=== PATIENT | male | born 1950 | race Caucasian/White ===

== ENCOUNTER 2016-10-29 09:48 | Emergency (ER) | payer OTHER ==
[2016-10-29] MEDS ORDERED: HYDROmorphone 1 MG/ML 1 ML SYRINGE IM STA (10:25)
--- NOTE | 2016-10-29 10:33 | ED ---
Fall HPI - General Chief Complaint: Fall Stated Complaint: Fall - 8 ft ladder Time Seen by Provider: 10/29/16 10:16 Source: patient, RN notes reviewed Mode of arrival: wheelchair - History of Present Illness Initial Comments: 65-year-old male presents to the emergency Department chief complaint of fall. Patient was about 8 feet up on a ladder he reached out and He fell. Patient states that he is now landed onto his right side. Patient states he blacked out when he hit his head. Patient is complaining of right shoulder and hip pain. Patient states that he does not have a headache he denies any neck pain. Patient states he has any pain to movement shoulder and points to the clavicle where his pain is located. Patient was able ambulate but he does have some tenderness on the lateral aspect of the right hip. Patient states he is concerned due to his continued symptoms so he thought that he should be evaluated. Patient denies any recent fever, chills, shortness of breath, chest pain, back pain, abdominal pain, nausea vomiting, numbness or tingling, dysuria or hematuria, constipation or diarrhea, headaches or visual changes, or any other current symptoms. - Related Data Home Medications Medication Instructions Recorded Confirmed Aspirin 81 mg PO DAILY 10/29/16 10/29/16 Doxycycline Hyclate [Vibramycin] 100 mg PO BID 10/29/16 10/29/16 Metoclopramide [Reglan] 10 mg PO DAILY PRN 10/29/16 10/29/16 Omeprazole [PriLOSEC] 20 mg PO DAILY 10/29/16 10/29/16 methylPREDNISolone [Medrol Dose See Taper PO DIRECTED 10/29/16 10/29/16 Pack] Previous Rx's Medication Instructions Recorded Hydrocodone/Acetaminophen [[place] 1 each PO Q6HR PRN #20 tab 10/29/16 5-325] Allergies Allergy/AdvReac Type Severity Reaction Status Date / Time No Known Allergies Allergy Unverified 10/29/16 10:29 Review of Systems ROS Statement: Those systems with pertinent positive or pertinent negative responses have been documented in the HPI. ROS Other: All systems not noted in ROS Statement are negative. Past Medical History Past Medical History: No Reported History History of Any Multi-Drug Resistant Organisms: None Reported Past Surgical History: Cholecystectomy Additional Past Surgical History / Comment(s): right/left rotator cuff surgery Past Psychological History: No Psychological Hx Reported Smoking Status: Never smoker Past Alcohol Use History: Occasional Past Drug Use History: None Reported General Exam - General Exam Comments Initial Comments: General: The patient is awake and alert, in no distress, and does not appear acutely ill. Neck: The neck is supple, there is no tenderness. Cardiovascular: There is a regular rate and rhythm. No murmur, rub or gallop is appreciated. Respiratory: Lungs are clear to auscultation, respirations are non-labored, breath sounds are equal. No wheezes, stridor, rales, or rhonchi. Musculoskeletal: The patient has pain to the anterior clavicle. No tenderness with palpation of the shoulder however he does have pain with range of motion at 7 levels. Patient has tenderness along the right lateral hip with full range motion is able to bear weight. Full range motion of right elbow and wrist. Patient's range of motion of knee. Neurological: CN II-XII intact, There are no obvious motor or sensory deficits. Coordination appears grossly intact. Speech is normal. Skin: Skin is warm and dry and no rashes or lesions are noted. Psychiatric: Normal mood and affect. Limitations: no limitations Course Vital Signs 10/29/16 10:03 Temperature 97.6 F Pulse Rate 84 Respiratory 20 Rate Blood Pressure 137/87 O2 Sat by Pulse 97 Oximetry Procedures - Orthopedic Splinting/Casting Injury #1 Side: right Upper Extremity Injury Location: clavicle Upper Extremity Immobilizer: sling/shoulder immobilizer Medical Decision Making - Medical Decision Making 65-year-old male presents to the emergency Department chief complaint of fall. At this time the patient does appear to have a right clavicle fracture. Patient is a sling and given follow-up to orthopedics. We did discuss close follow-up is discussed return parameters and care. We discussed all the patient 's questions. He stated understanding and agreement with plan. He will be discharged home. - Radiology Data Radiology results: report reviewed, image reviewed Disposition Clinical Impression: Fall, Minor head injury with loss of consciousness, Contusion of right hip, Right clavicle fracture Disposition: HOME SELF-CARE Condition: Stable Instructions: Head Injury (ED), Clavicle Fracture (ED) Additional Instructions: Please use medication as discussed. Please follow up with family doctor if symptoms have not improved over the next two days. Please return to the emergency room if your symptoms increase or worsen or for any other concerns. Prescriptions: Hydrocodone/Acetaminophen [[place] 5-325] 1 each PO Q6HR PRN #20 tab PRN Reason: Pain Referrals: Fredy Huang MD [Primary Care Provider] - 1-2 days Garret Johnson DO [Doctor of Osteopathic Medicine] - 1-2 days Time of Disposition: 11:09
--- NOTE | 2016-10-29 10:56 | XR ---
EXAMINATION TYPE: XR Hip RT and AP Pelvis DATE OF EXAM: 10/29/2016 10:48 AM COMPARISON: NONE HISTORY: pain TECHNIQUE: A single AP view of the pelvis is obtained. Two views of the right hip are obtained. FINDINGS: There is no acute fracture/dislocation evident in the pelvis. The hip and sacroiliac join ts appear symmetric and unremarkable. The overlying soft tissue appears unremarkable. Two views of right hip show no acute fracture or dislocation. No focal lytic or sclerotic lesion see n in the proximal right femur. The overlying soft tissue is unremarkable. IMPRESSION: There is no acute fracture or dislocation in the pelvis or right hip.
--- NOTE | 2016-10-29 10:57 | XR ---
EXAMINATION TYPE: XR clavicle RT DATE OF EXAM: 10/29/2016 10:48 AM COMPARISON: NONE HISTORY: Pain TECHNIQUE: 2 views of the right clavicle FINDINGS: There is a fracture involving the mid shaft of the right clavicle with displacement and a d egree of comminution. Severe arthropathy AC joint. IMPRESSION: 1. Displaced fracture mid right clavicle.
--- NOTE | 2016-10-29 11:04 | CT ---
EXAMINATION TYPE: CT brain channing wo con DATE OF EXAM: 10/29/2016 10:47 AM COMPARISON: NONE HISTORY: 65-year-old male fell off ladder about 8ft and landed on right side CT DLP: Brain 1126.5 and Cervical 584.9 mGycm Automated exposure control for dose reduction was used. Technique: Examination of the head was done in axial plane without intravenous contrast. Coronal and sagittal reconstructions performed. CT of the cervical spine was obtained in axial plane without intravenous injection of contrast mater ial. Coronal and sagittal reformatted images were obtained from the axial views for evaluation of f ractures, spinal alignment and canal. FINDINGS: Head: There is no evidence of acute intracranial hemorrhage, acute ischemic changes, mass, mass-effect, or extra-axial fluid collection. There is no effacement of cerebral sulci or basal subarachnoid cister ns. There is no hydrocephalus. There is no midline shift. Mercado-white matter distinction is preserv ed. Mild patchy periventricular white matter hypodensities suggestive of chronic small vessel ischemic di sease. There is mild generalized supratentorial volume loss. Slight leftward nasal septal deviation. Paranasal sinuses and mastoid air cells well pneumatized. Orb its and globes intact. No calvarial fracture. Cervical spine: Partially visualized, mildly comminuted right clavicular shaft fracture with adjacent mild periosteal /soft tissue hematoma. No craniocervical junction abnormality, predental space widening, or prevertebral soft tissue swellin g. Normal alignment of the cervical spine. No acute fracture. Mild disc/endplate degenerative change especially from C4 through C7 levels. There is facet arthropat hy, greatest on the left side. No anahi canal compromise. Degenerative changes may narrow the spinal canal mildly such as at C3-C4. There also appears to be variable moderate left-sided neuroforaminal n arrowing such as that C3-C4, C4-C5, and C5-C6. Sagittal and coronal reformatted images confirm above findings. COMBINED IMPRESSION: 1. No acute intracranial abnormality seen. Mild generalized atrophy. 2. No acute fracture or malalignment of the cervical spine. Mild spondylotic change as mentioned abov e and 3. Partially visualized right clavicular shaft fracture..
[2016-10-29 11:17] VITALS: BP 127/80; PULSE 69; RESP 16; TEMP 97.8
== END 2016-10-29 11:22 | disposition home or self-care (01) ==
LOC: EC 09:48
DX: S42.021A Displaced fracture of shaft of right clavicle, initial encounter for closed fracture (principal); S70.01XA Contusion of right hip, initial encounter; S06.9X9A Unspecified intracranial injury with loss of consciousness of unspecified duration, initial encounter; Z79.82 Long term (current) use of aspirin; Z79.899 Other long term (current) drug therapy; Z79.52 Long term (current) use of systemic steroids; W11.XXXA Fall on and from ladder, initial encounter; W22.09XA Striking against other stationary object, initial encounter
CPT/HCPCS: 73502; 73000; 72125; 70450; 99284; 96372; J1170

== ENCOUNTER 2017-01-30 11:30 | Day surgery (SDC) | payer MEDICARE ==
[2017-01-28 11:30] VITALS: BMI 32.2
[~2017-01-30 11:30] MED LIST: LIDOCAINE 1% 20 ML VIAL (10MG/ML) FOR IV START INTRADERMA PRN
[2017-01-30 12:11] VITALS: RESP 16; TEMP 98.1
[2017-01-30] MEDS: LACTATED RINGERS 1,000 ML IV SCH ×2 (12:23→13:29)
[2017-01-30 12:25] LABS: Glucose,Whole Blood 106 mg/dL (75-99)
[2017-01-30] MEDS ORDERED: PROPOFOL 10 MG/ML 20 ML VIAL IV ONE (13:31)
--- NOTE | 2017-01-30 14:00 | P.PCN ---
Date of Procedure: 01/30/17 Preoperative Diagnosis: Postoperative Diagnosis: Procedure(s) Performed: Procedure: Total colonoscopy. Preoperative diagnosis: Screening for neoplasia, patient has history of polyps. Postoperative diagnosis: Minimal sigmoid diverticulosis with no evidence of acute diverticulitis, strictures, polyps or cancer. Preparation: HalfLytely prep. Sedation: Was provided by anesthesia. Brief clinical history: The patient is a 66-year-old male who is scheduled for this evaluation for screening for neoplasia because of history of polyps. His last exam was in April 2011. At this time, he has no abdominal complaints, bleeding or anemia. Procedure: With the patient on his left lateral decubitus position and after informed consent and adequate sedation, the perianal area was inspected and it did not show any fissures or fistulas. There were no masses felt on digital rectal examination. The Olympus CFQ 160L videocolonoscope was then used and was inserted in the rectum in the usual fashion and advanced to the cecum. There was minimal diverticulosis in the distal sigmoid with no evidence of acute diverticulitis or strictures. No polyps or tumors were seen. The mucosa appeared healthy. I retroflexed the endoscope in the rectum before the endoscope was withdrawn. The patient tolerated the procedure well. Plan: The patient was reassured. Discussed dietary measures. He will follow up with you as planned and I recommended repeat exam in 5 years. Implants: Indications for Procedure: Operative Findings: Description of Procedure:
[2017-01-30 14:14] VITALS: BP 111/73; PULSE 56
== END 2017-01-30 15:18 | disposition home or self-care (01) ==
LOC: ORWHC2ENDO 11:30
DX: Z12.11 Encounter for screening for malignant neoplasm of colon (principal); K57.30 Diverticulosis of large intestine without perforation or abscess without bleeding; Z86.010 Personal history of colon polyps; K21.9 Gastro-esophageal reflux disease without esophagitis; J45.909 Unspecified asthma, uncomplicated; Z79.84 Long term (current) use of oral hypoglycemic drugs; Z79.82 Long term (current) use of aspirin; Z79.899 Other long term (current) drug therapy
CPT/HCPCS: J2704; G0105

== ENCOUNTER → 2017-06-23 | Outpatient (CLI) | payer MEDICARE ==
--- NOTE | 2017-06-23 08:49 | CT ---
EXAMINATION TYPE: CT abdomen pelvis w con DATE OF EXAM: 06/23/2017 COMPARISON: 05/29/2015 HISTORY: Rt sided pain CT DLP: 1364.7 mGycm CONTRAST: CT scan of the abdomen and pelvis is performed with Oral Contrast and with IV Contrast, patient injec smitha with 100 mL of Omnipaque 300. FINDINGS: LUNG BASES-: No visible nodule. No infiltrate. LIVER/GB: No space occupying hepatic lesion. Biliary tree is of normal caliber. Fatty hepatic infiltr ation noted. Cholecystectomy clips identified. PANCREAS: No inflammation. No distinct mass. SPLEEN: No splenic enlargement. No lesion seen. ADRENALS: No nodule. No thickening. KIDNEYS/BLADDER: No hydronephrosis. No nephrolithiasis. Simple cyst upper pole right kidney measur es 2.4 cm. Urinary bladder grossly unremarkable. BOWEL: Normal appendix. Small sliding hiatal hernia. Normal bowel caliber. No inflammation. GENITAL ORGANS: No gross abnormality. LYMPH NODES: No greater than 1cm abdominal or pelvic lymph nodes are appreciated. AORTA: No significant abnormality. OSSEOUS STRUCTURES: Degenerative changes lumbar spine.. OTHER: No significant additional abnormality is seen. IMPRESSION: 1. Hepatic steatosis. 2. Small sliding-type hiatal hernia. 3. Simple cyst upper pole right kidney.
== END | disposition home or self-care (01) ==
LOC: RADCTMAIN 06:42
PROVIDERS: ATTEND Family Medicine
DX: K44.9 Diaphragmatic hernia without obstruction or gangrene (principal); K76.0 Fatty (change of) liver, not elsewhere classified; N28.1 Cyst of kidney, acquired
CPT/HCPCS: 74177; Q9967

== ENCOUNTER → 2020-04-12 | Outpatient (CLI) | payer MEDICARE ==
[2020-04-12 20:03] LABS: Codfish IgE <0.10 kU/L
[2020-04-12 20:04] LABS: Clam IgE <0.10 kU/L; Peanut IgE <0.10 kU/L; Scallop IgE <0.10 kU/L; Shrimp IgE 0.17 kU/L; Soybean IgE <0.10 kU/L; Walnut IgE (Food) <0.10 kU/L
[2020-04-12 20:05] LABS: Cat Epith & Dander IgE <0.10 kU/L; Dermato. farinae IgE 4.49 kU/L
[2020-04-12 20:07] LABS: Ragweed,Common IgE 0.19 kU/L
[2020-04-12 20:08] LABS: Cockroach IgE <0.10 kU/L; Red Top (Bentgrass) IgE <0.10 kU/L
[2020-04-12 20:10] LABS: Alternaria alternata IgE <0.10 kU/L; Aspergillus fumagatus IgE <0.10 kU/L; Birch IgE <0.10 kU/L; Cladosporian herbarum IgE <0.10 kU/L; Maple (Box Elder) IgE <0.10 kU/L
[2020-04-12 20:11] LABS: Elm IgE <0.10 kU/L; Oak IgE <0.10 kU/L
[2020-04-12 20:12] LABS: Dog Dander IgE <0.10 kU/L
== END | disposition home or self-care (01) ==
LOC: LABWHC1 10:03
PROVIDERS: ATTEND Internal Medicine Critical Care Medicine
DX: J45.40 Moderate persistent asthma, uncomplicated (principal)
CPT/HCPCS: 36415; 82785; 85008; 86003

== ENCOUNTER → 2022-10-18 | Outpatient (CLI) | payer MEDICARE ==
--- NOTE | 2022-10-18 13:20 | US ---
EXAMINATION TYPE: US carotid duplex BILAT DATE OF EXAM: 10/18/2022 COMPARISON: NONE CLINICAL INDICATION: Male, 71 years old with history of E78.5 HYPERLIPIDEMIA, UNSPECIFIED; Dizziness TECHNIQUE: Carotid duplex ultrasound examination. Indirect Doppler criteria was utilized. FINDINGS: EXAM MEASUREMENTS: RIGHT: Peak Systolic Velocity (PSV) cm/sec ----- Right CCA: 67.7 ----- Right ICA: 66.0 ----- Right ECA: 45.6 ICA/CCA ratio: 1.0 RIGHT: End Diastole cm/sec ----- Right CCA: 18.8 ----- Right ICA: 24.6 ----- Right ECA: 9.3 LEFT: Peak Systolic Velocity (PSV) cm/sec ----- Left CCA: 72.1 ----- Left ICA: 58.8 ----- Left ECA: 57.0 ICA/CCA ratio: 0.8 LEFT: End Diastole cm/sec ----- Left CCA: 25.0 ----- Left ICA: 24.2 ----- Left ECA: 12.8 VERTEBRALS (direction of flow): Right Vertebral: Antegrade Left Vertebral: Antegrade Rhythm: Normal No significant stenosis IMPRESSION: No ultrasound evidence for hemodynamically significant stenosis of the bilateral internal carotid art eries. Criteria for Assigning % of Stenosis / Diameter reduction (Estimation based on the indirect measurements of the internal carotid artery velocities (ICA PSV). 1. Normal (no stenosis)=ICA PSV < 125 cm/s: ratio < 2.0: ICA EDV<40 cm/s. 2. Less than 50% stenosis=ICA PSV < 125 cm/s: ratio < 2.0: ICA EDV<40 cm/s. 3. 50 to 69% stenosis=ICA PSV of 125 to 230 cm/s: ration 2.0 ? 4.0: ICA EDV 40-100 cm/s. 4. Greater than 70% stenosis to near occlusion= ICA PSV > 230 cm/s: ratio > 4.0: ICA EDV > 100 cm/s. 5. Near occlusion= ICA PSV velocities may be low or undetectable: variable ratio and ICA EDV. 6. Total occlusion=unable to detect flow.
== END | disposition home or self-care (01) ==
LOC: RADUSWWP 12:34
PROVIDERS: ATTEND Family Medicine
DX: E78.5 Hyperlipidemia, unspecified (principal); R42 Dizziness and giddiness
CPT/HCPCS: 93880

== ENCOUNTER → 2022-11-12 | Outpatient (CLI) | payer MEDICARE ==
--- NOTE | 2022-11-13 09:53 | CA ---
Transthoracic Echo Report Name: Glen Larios Age: 71 Gender: M : 1950 Exam Date: 11/12/2022 14:23 Exam Location: [facility] Ht (in): 68 Wt (lb): 200 Ordering Physician: Nitin Ibrahim MD Attending/Referring Phys: Christy Warren [facility] [employer] Karli Coulter RDCS Procedure CPT: Indications: i10 Cardiac Hx: Technical Quality: Good Contrast 1: Total Dose (mL): Contrast 2: Total Dose (mL): MEASUREMENTS (Male / Female) Normal Values 2D ECHO LV Diastolic Diameter PLAX 4.3 cm 4.2 - 5.9 / 3.9 - 5.3 cm LV Systolic Diameter PLAX 2.9 cm IVS Diastolic Thickness 1.2 cm 0.6 - 1.0 / 0.6 - 0.9 cm LVPW Diastolic Thickness 1.1 cm 0.6 - 1.0 / 0.6 - 0.9 cm LV Relative Wall Thickness 0.5 RV Internal Dim ED PLAX 3.1 cm LA Systolic Diameter LX 3.2 cm 3.0 - 4.0 / 2.7 - 3.8 cm LV Diastolic Volume MOD 4C 53.4 cm??? LV Systolic Volume MOD 4C 25.3 cm??? LV Ejection Fraction MOD 4C 52.6 % LV Cardiac Index MOD 4C 931.2 cm???/min???m??? LV Diastolic Length 4C 7.5 cm LV Systolic Length 4C 6.7 cm LV Diastolic Volume MOD 2C 72.2 cm??? LV Systolic Volume MOD 2C 40.3 cm??? LV Ejection Fraction MOD 2C 44.2 % LV Cardiac Index MOD 2C 1057.9 cm???/min???m??? LV Diastolic Length 2C 8.2 cm LV Systolic Length 2C 7.1 cm M-MODE Aortic Root Diameter MM 3.5 cm LA Systolic Diameter MM 3.7 cm LA Ao Ratio MM 1.0 DOPPLER AV Peak Velocity 136.8 cm/s AV Peak Gradient 7.5 mmHg Mitral E Point Velocity 69.7 cm/s Mitral A Point Velocity 76.7 cm/s Mitral E to A Ratio 0.9 MV Deceleration Time 210.9 ms MV E' Velocity 6.2 cm/s Mitral E to MV E' Ratio 11.2 TR Peak Velocity 228.2 cm/s TR Peak Gradient 20.8 mmHg Right Ventricular Systolic Press 30.8 mmHg FINDINGS Left Ventricle Left ventricular ejection fraction is estimated at 55-60 %. Left ventricular cavity size normal. Mildly increased septal wall thickness. Right Ventricle Normal right ventricular size and function. Right ventricular systolic pressure within normal limits. Right Atrium Normal right atrial size. Left Atrium Normal left atrial size. Mitral Valve Structurally normal mitral valve. Mild mitral regurgitation. Aortic Valve Trileaflet aortic valve. No aortic valve stenosis or regurgitation. Tricuspid Valve Structurally normal tricuspid valve. Mild tricuspid regurgitation. Pulmonic Valve Structurally normal pulmonic valve. Mild pulmonic regurgitation. Pericardium Normal pericardium. No pericardial effusion. Aorta Normal size aortic root and proximal ascending aorta. CONCLUSIONS Normal biventricular dimension and systolic function Mild mitral regurgitation Mild tricuspid regurgitation Previewed by: Dr. Kb Ramires MD (Electronically Signed) Final Date: 13 November 2022 09:52
== END | disposition home or self-care (01) ==
LOC: RADECHMAIN 14:17
PROVIDERS: ATTEND Family Medicine
DX: I08.1 Rheumatic disorders of both mitral and tricuspid valves (principal)
CPT/HCPCS: 93306

== ENCOUNTER 2023-07-04 09:13 | Emergency (ER) | payer MEDICARE ==
[2023-07-04] MEDS: SODIUM CHLORIDE 0.9% 1,000 ML IV ONE (09:56)
[2023-07-04] MEDS: SODIUM CHLORIDE 0.9% 500 ML 500 ML IV ONE (09:56)
[2023-07-04 10:07] LABS: HCT 39.5 % (39.0-53.0); HGB 13.8 gm/dL (13.0-17.5); MCH 32.6 pg (25.0-35.0); MCHC 34.9 g/dL (31.0-37.0); MCV 93.2 fL (80.0-100.0); Mean Platelet Volume 8.7; Platelet Count 183 k/uL (150-450); RBC 4.24 m/uL (4.30-5.90); RDW 12.5 % (11.5-15.5); WBC 28.3 k/uL (3.8-10.6)
--- NOTE | 2023-07-04 10:16 | XR ---
EXAMINATION TYPE: XR chest 2V DATE OF EXAM: 07/04/2023 10:06 AM CLINICAL INDICATION:Male, 72 years old with history of sob; [facility] COMPARISON: None TECHNIQUE: XR chest 2V Frontal and lateral views of the chest. FINDINGS: Lungs/Pleura: Airspace opacities in left lower lobe. There is no evidence of pleural effusion, focal consolidation, or pneumothorax. Pulmonary vascularity: Unremarkable. Heart/mediastinum: Cardiomediastinal silhouette is unremarkable. Musculoskeletal: No acute osseous pathology. Other findings: None Lines/Tubes: IMPRESSION: Left lower lobe airspace opacities compatible with pneumonia.
[2023-07-04 10:20] LABS: ALT 41 U/L (4-49); AST 34 U/L (17-59); African American GFR (CKD) >90 (>60 ml/min/1.73 sqM); Albumin 3.9 g/dL (3.5-5.0); Alkaline Phosphatase 89 U/L (38-126); Anion Gap 11 mmol/L; Blood Urea Nitrogen 14 mg/dL (9-20); Calcium 8.8 mg/dL (8.4-10.2); Carbon Dioxide 19 mmol/L (22-30); Chloride 111 mmol/L (98-107); Glucose 181 mg/dL (74-99); Lipase 37 U/L (23-300); Non-African American GFR(CKD) >90 (>60 ml/min/1.73 sqM); Sodium 141 mmol/L (137-145); Total Bilirubin 0.9 mg/dL (0.2-1.3); Total Protein 6.8 g/dL (6.3-8.2)
[2023-07-04 10:21] LABS: Potassium 4.1 mmol/L (3.5-5.1)
[2023-07-04 10:31] LABS: Band Neutrophils % 3 %; Metamyelocytes # (M) 1.13 k/uL (0); Metamyelocytes % 4 %; Monocytes # (M) 1.98 k/uL (0-1.0); Neutrophils % (M) 81 %; Nucleated Red Blood Cells 0 /100 WBC (0-0); Total Cells Counted 200
--- NOTE | 2023-07-04 10:31 | ED ---
General Adult HPI - General Chief complaint: Nausea/Vomiting/Diarrhea Stated complaint: Dehydration,High Heart Rate Time Seen by Provider: 07/04/23 09:15 Source: patient, RN notes reviewed Mode of arrival: ambulatory Limitations: no limitations - History of Present Illness Initial comments: 72-year-old male presents emergency department with chief complaint of shortness of breath, congestion, nausea vomiting. He states has not felt well in several weeks. He states he was sick and having issues with his asthma prior to going on a cruise he states he just got home and states during his cruise he had some nausea vomiting extreme fatigue and shortness of breath. He does have a cough that is productive at times. He denies any current headache states he had shaking chills last night but unsure if he had a fever. Patient denies any back pain, flank pain localized abdominal pain. - Related Data Home Medications Medication Instructions Recorded Confirmed Aspirin 81 mg PO DAILY 10/29/16 01/28/17 Metoclopramide [Reglan] 10 mg PO BID PRN 10/29/16 01/28/17 Omeprazole [PriLOSEC] 20 mg PO DAILY 10/29/16 01/28/17 Albuterol Inhaler [Ventolin Hfa 1 - 2 puff INHALATION Q6HR PRN 01/28/17 01/28/17 Inhaler] Albuterol Nebulizer 1 dose INHALATION DAILY PRN 01/28/17 01/28/17 Canagliflozin [Invokana] 150 mg PO DAILY 01/28/17 01/28/17 Previous Rx's Medication Instructions Recorded Levofloxacin [Levaquin] 500 mg PO DAILY #10 tab 07/04/23 Allergies Allergy/AdvReac Type Severity Reaction Status Date / Time No Known Allergies Allergy Unverified 07/04/23 09:23 Review of Systems ROS Statement: Those systems with pertinent positive or pertinent negative responses have been documented in the HPI. ROS Other: All systems not noted in ROS Statement are negative. Past Medical History Past Medical History: GERD/Reflux Additional Past Medical History / Comment(s): RECENT STRESS TEST AND ECHO DUE TO ARM PAIN., ALLERGIES, TESTING FOR DIABETES . History of Any Multi-Drug Resistant Organisms: None Reported Past Surgical History: Cholecystectomy Additional Past Surgical History / Comment(s): right/left rotator cuff surgery Past Anesthesia/Blood Transfusion Reactions: No Reported Reaction Past Psychological History: No Psychological Hx Reported Smoking Status: Never smoker Past Alcohol Use History: Occasional Past Drug Use History: None Reported - Past Family History Sister(s) Family Medical History: Cancer Additional Family Medical History / Comment(s): BREAST CANCER General Exam Limitations: no limitations General appearance: alert, in no apparent distress Head exam: Present: atraumatic, normocephalic, normal inspection Respiratory exam: Present: rhonchi. Absent: normal lung sounds bilaterally, respiratory distress, wheezes, rales, stridor Cardiovascular Exam: Present: normal rhythm, tachycardia, normal heart sounds. Absent: systolic murmur, diastolic murmur, rubs, gallop, clicks GI/Abdominal exam: Present: soft, normal bowel sounds. Absent: distended, tenderness, guarding, rebound, rigid Course Vital Signs 07/04/23 07/04/23 07/04/23 09:21 10:20 11:05 Temperature 98.1 F 98.2 F 98.5 F Pulse Rate 115 H 96 95 Respiratory 20 18 18 Rate Blood Pressure 129/83 120/87 113/73 O2 Sat by Pulse 99 95 96 Oximetry 07/04/23 12:21 Temperature 98.1 F Pulse Rate 94 Respiratory 18 Rate Blood Pressure 115/79 O2 Sat by Pulse 96 Oximetry Medical Decision Making - Medical Decision Making Was pt. sent in by a medical professional or institution (CHUYITA Lopes, RESERVOIR ENGINEERING ADVISOR, urgent care, hospital, or fdc...) When possible be specific @ -Urgent care Did you speak to anyone other than the patient for history (EMS, parent, family, police, friend...)? What history was obtained from this source @ -No Did you review nursing and triage notes (agree or disagree)? Why? @ -I reviewed and agree with nursing and triage notes Were old charts reviewed (outside hosp., previous admission, EMS record, old EKG, old radiological studies, urgent care reports/EKG's, fdc records)? Report findings @ -No old charts were reviewed Differential Diagnosis (chest pain, altered mental status, abdominal pain women, abdominal pain men, vaginal bleeding, weakness, fever, dyspnea, syncope, headache, dizziness, GI bleed, back pain, seizure, CVA, palpatations, mental health, musculoskeletal)? @ -Differential Dyspnea: Coronary syndrome, arrhythmia, tamponade, asthma, COPD, pulmonary embolism, pneumonia, pneumothorax, pulmonary effusion, anaphylaxis, diabetic ketoacidosis, flailed chest, pulmonary contusion, diaphragmatic rupture, anemia, neuromuscular, this is not meant to be an all-inclusive list. EKG interpreted by me (3pts min.). @ -As above X-rays interpreted by me (1pt min.). @ -[Chest s x-ray shows left-sided pneumonia CT interpreted by me (1pt min.). @ -CT angio chest shows large area of consolidation, pneumonia on the left side with multiple nodules U/S interpreted by me (1pt. min.). @ -None done What testing was considered but not performed or refused? (CT, X-rays, U/S, labs)? Why? @ -None What meds were considered but not given or refused? Why? @ -None Did you discuss the management of the patient with other professionals (professionals i.e. , PA, RESERVOIR ENGINEERING ADVISOR, lab, RT, psych nurse, clinical social work aide, customer field representative, teacher, wildlife conservation officer, correctional casework specialist)? Give summary @ -No Was smoking cessation discussed for >3mins.? @ -No Was critical care preformed (if so, how long)? @ -No Were there social determinants of health that impacted care today? How? (Homelessness, low income, unemployed, alcoholism, drug addiction, transportation, low edu. Level, literacy, decrease access to med. care, shelter, rehab)? @ -No Was there de-escalation of care discussed even if they declined (Discuss DNR or withdrawal of care, Hospice)? DNR status @ -No What co-morbidities impacted this encounter? (DM, HTN, Smoking, COPD, CAD, Cancer, CVA, ARF, Chemo, Hep., AIDS, mental health diagnosis, sleep apnea, morbid obesity)? @ -[Asthma Was patient admitted / discharged? Hospital course, mention meds given and route, prescriptions, significant lab abnormalities, going to OR and other pertinent info. @ -Disc urged patient presented for dyspnea patient is found to have left-sided pneumonia, significant leukocytosis he has no hypoxia. Patient was offered admission for pneumonia, further pulmonary workup. He states he feels comfortable discharge on oral antibiotic and close follow-up return brands discussed he was updated on CT findings of lung nodules. Undiagnosed new problem with uncertain prognosis? @ -[No Drug Therapy requiring intensive monitoring for toxicity (Heparin, Nitro, Insulin, Cardizem)? @ -No Were any procedures done? @ -No Diagnosis/symptom? @ -[Pneumonia, leukocytosis, COVID-19 Acute, or Chronic, or Acute on Chronic? @ -Acute Uncomplicated (without systemic symptoms) or Complicated (systemic symptoms)? @ -Uncomplicated Side effects of treatment? @ -[No Exacerbation, Progression, or Severe Exacerbation? @ -No Poses a threat to life or bodily function? How? (Chest pain, [place], [place], pneumonia, PE, COPD, DKA, ARF, appy, cholecystitis, CVA, Diverticulitis, Homicidal, Suicidal, threat to staff... and all critical care pts) @ -Yes pneumonia - Lab Data Result diagrams: 07/04/23 09:53 07/04/23 09:53 Lab Results 07/04/23 07/04/23 07/04/23 Range/Units 09:53 09:53 09:53 WBC 28.3 H (3.8-10.6) k/uL RBC 4.24 L (4.30-5.90) m/uL Hgb 13.8 (13.0-17.5) gm/dL Hct 39.5 (39.0-53.0) % MCV 93.2 (80.0-100.0) fL MCH 32.6 (25.0-35.0) pg MCHC 34.9 (31.0-37.0) g/dL RDW 12.5 (11.5-15.5) % Plt Count 183 (150-450) k/uL MPV 8.7 Neutrophils % (Manual) 81 % Band Neuts % (Manual) 3 % Lymphocytes % (Manual) 6 % Monocytes % (Manual) 7 % Metamyelocytes % 4 % Neutrophils # (Manual) 23.70 H (1.3-7.7) k/uL Lymphocytes # (Manual) 1.70 (1.0-4.8) k/uL Monocytes # (Manual) 1.98 H (0-1.0) k/uL Metamyelocytes # (Man) 1.13 H (0) k/uL Nucleated RBCs 0 (0-0) /100 WBC Manual Slide Review Performed RBC Morphology Normal D-Dimer (<0.60) mg/L FEU Sodium 141 (137-145) mmol/L Potassium 4.1 (3.5-5.1) mmol/L Chloride 111 H (98-107) mmol/L Carbon Dioxide 19 L (22-30) mmol/L Anion Gap 11 mmol/L BUN 14 (9-20) mg/dL Creatinine 0.78 (0.66-1.25) mg/dL Est GFR (CKD-EPI)AfAm >90 (>60 ml/min/1.73 sqM) Est GFR (CKD-EPI)NonAf >90 (>60 ml/min/1.73 sqM) Glucose 181 H (74-99) mg/dL Plasma Lactic Acid Timmy (0.7-2.0) mmol/L Calcium 8.8 (8.4-10.2) mg/dL Total Bilirubin 0.9 (0.2-1.3) mg/dL AST 34 (17-59) U/L ALT 41 (4-49) U/L Alkaline Phosphatase 89 (38-126) U/L Troponin I (0.000-0.034) ng/mL Total Protein 6.8 (6.3-8.2) g/dL Albumin 3.9 (3.5-5.0) g/dL Lipase 37 (23-300) U/L Urine Color Yellow Urine Appearance Clear (Clear) Urine pH 6.0 (5.0-8.0) Ur Specific [place] 1.025 (1.001-1.035) Urine Protein Trace H (Negative) Urine Glucose (UA) Trace H (Negative) Urine Ketones 1+ H (Negative) Urine Blood Negative (Negative) Urine Nitrite Negative (Negative) Urine Bilirubin Negative (Negative) Urine Urobilinogen <2.0 (<2.0) mg/dL Ur Leukocyte Esterase Negative (Negative) Influenza Type A (PCR) (Not Detectd) Influenza Type B (PCR) (Not Detectd) RSV (PCR) (Not Detectd) SARS-CoV-2 (PCR) (Not Detectd) 07/04/23 07/04/23 07/04/23 Range/Units 09:53 09:53 09:53 WBC (3.8-10.6) k/uL RBC (4.30-5.90) m/uL Hgb (13.0-17.5) gm/dL Hct (39.0-53.0) % MCV (80.0-100.0) fL MCH (25.0-35.0) pg MCHC (31.0-37.0) g/dL RDW (11.5-15.5) % Plt Count (150-450) k/uL MPV Neutrophils % (Manual) % Band Neuts % (Manual) % Lymphocytes % (Manual) % Monocytes % (Manual) % Metamyelocytes % % Neutrophils # (Manual) (1.3-7.7) k/uL Lymphocytes # (Manual) (1.0-4.8) k/uL Monocytes # (Manual) (0-1.0) k/uL Metamyelocytes # (Man) (0) k/uL Nucleated RBCs (0-0) /100 WBC Manual Slide Review RBC Morphology D-Dimer (<0.60) mg/L FEU Sodium (137-145) mmol/L Potassium (3.5-5.1) mmol/L Chloride (98-107) mmol/L Carbon Dioxide (22-30) mmol/L Anion Gap mmol/L BUN (9-20) mg/dL Creatinine (0.66-1.25) mg/dL Est GFR (CKD-EPI)AfAm (>60 ml/min/1.73 sqM) Est GFR (CKD-EPI)NonAf (>60 ml/min/1.73 sqM) Glucose (74-99) mg/dL Plasma Lactic Acid Timmy 1.5 (0.7-2.0) mmol/L Calcium (8.4-10.2) mg/dL Total Bilirubin (0.2-1.3) mg/dL AST (17-59) U/L ALT (4-49) U/L Alkaline Phosphatase (38-126) U/L Troponin I <0.012 (0.000-0.034) ng/mL Total Protein (6.3-8.2) g/dL Albumin (3.5-5.0) g/dL Lipase (23-300) U/L Urine Color Urine Appearance (Clear) Urine pH (5.0-8.0) Ur Specific Eckley (1.001-1.035) Urine Protein (Negative) Urine Glucose (UA) (Negative) Urine Ketones (Negative) Urine Blood (Negative) Urine Nitrite (Negative) Urine Bilirubin (Negative) Urine Urobilinogen (<2.0) mg/dL Ur Leukocyte Esterase (Negative) Influenza Type A (PCR) Not Detected (Not Detectd) Influenza Type B (PCR) Not Detected (Not Detectd) RSV (PCR) Not Detected (Not Detectd) SARS-CoV-2 (PCR) Detected A (Not Detectd) 07/04/23 Range/Units 10:14 WBC (3.8-10.6) k/uL RBC (4.30-5.90) m/uL Hgb (13.0-17.5) gm/dL Hct (39.0-53.0) % MCV (80.0-100.0) fL MCH (25.0-35.0) pg MCHC (31.0-37.0) g/dL RDW (11.5-15.5) % Plt Count (150-450) k/uL MPV Neutrophils % (Manual) % Band Neuts % (Manual) % Lymphocytes % (Manual) % Monocytes % (Manual) % Metamyelocytes % % Neutrophils # (Manual) (1.3-7.7) k/uL Lymphocytes # (Manual) (1.0-4.8) k/uL Monocytes # (Manual) (0-1.0) k/uL Metamyelocytes # (Man) (0) k/uL Nucleated RBCs (0-0) /100 WBC Manual Slide Review RBC Morphology D-Dimer 1.59 H (<0.60) mg/L FEU Sodium (137-145) mmol/L Potassium (3.5-5.1) mmol/L Chloride (98-107) mmol/L Carbon Dioxide (22-30) mmol/L Anion Gap mmol/L BUN (9-20) mg/dL Creatinine (0.66-1.25) mg/dL Est GFR (CKD-EPI)AfAm (>60 ml/min/1.73 sqM) Est GFR (CKD-EPI)NonAf (>60 ml/min/1.73 sqM) Glucose (74-99) mg/dL Plasma Lactic Acid Timmy (0.7-2.0) mmol/L Calcium (8.4-10.2) mg/dL Total Bilirubin (0.2-1.3) mg/dL AST (17-59) U/L ALT (4-49) U/L Alkaline Phosphatase (38-126) U/L Troponin I (0.000-0.034) ng/mL Total Protein (6.3-8.2) g/dL Albumin (3.5-5.0) g/dL Lipase (23-300) U/L Urine Color Urine Appearance (Clear) Urine pH (5.0-8.0) Ur Specific Eck[place] (1.001-1.035) Urine Protein (Negative) Urine Glucose (UA) (Negative) Urine Ketones (Negative) Urine Blood (Negative) Urine Nitrite (Negative) Urine Bilirubin (Negative) Urine Urobilinogen (<2.0) mg/dL Ur Leukocyte Esterase (Negative) Influenza Type A (PCR) (Not Detectd) Influenza Type B (PCR) (Not Detectd) RSV (PCR) (Not Detectd) SARS-CoV-2 (PCR) (Not Detectd) Disposition Clinical Impression: Pneumonia, Leukocytosis, COVID-19 Disposition: HOME SELF-CARE Condition: Stable Instructions (If sedation given, give patient instructions): Bacterial Pneumonia (ED) Additional Instructions: Please return to the Emergency Department if symptoms worsen or any other concerns. Prescriptions: Levofloxacin [Levaquin] 500 mg PO DAILY #10 tab Is patient prescribed a controlled substance at d/c from ED?: No Referrals: Nitin Ibrahim MD [Primary Care Provider] - 1-2 days Time of Disposition: 12:03
[2023-07-04 10:33] LABS: RBC Morphology Normal
[2023-07-04 11:16] LABS: Appearance,Urine Clear (Clear); Bilirubin,Urine Negative (Negative); Blood,Urine Negative (Negative); Color,Urine Yellow; Glucose,Urine (UA) Trace (Negative); Ketones,Urine 1+ (Negative); Leukocyte Esterase,Urine Negative (Negative); Nitrite,Urine Negative (Negative); Protein,Urine Trace (Negative); Specific Gravity,Urine 1.025 (1.001-1.035); Urobilinogen,Urine <2.0 mg/dL (<2.0)
[2023-07-04 11:20] VITALS: RESP 18
--- NOTE | 2023-07-04 11:32 | CT ---
EXAMINATION TYPE: CT chest angio for PE DATE OF EXAM: 07/04/2023 COMPARISON: None HISTORY: Elevated D-dimer, SOB CT DLP: 365.6 mGycm Automated exposure control for dose reduction was used. CONTRAST: CT Chest for pulmonary embolism performed with without and with IV Contrast, patient injected with 10 0 ml mL of Isovue 370. 3-D postprocessing was performed. FINDINGS: The great vessels the chest are normal and there is no mediastinal, hilar or axillary adenopathy. There are no definite filling defects within the pulmonary artery or segmental branches to suggest pu lmonary embolism. There are scattered multifocal small groundglass opacities in the upper lobe and there is a large het erogeneous partially consolidative opacity in left lower lobe. There are scattered pulmonary nodules in the right lung largest of which measures roughly 7 mm. There is no pleural effusion or pneumothorax. Limited scanning through the upper abdomen reveals no gross abnormality. No focal osseous lesions are seen. IMPRESSION: 1. No evidence of pulmonary embolus 2. Acute cardiopulmonary disease involving the left lung likely a pneumonic inflammatory process. Fol low-up to resolution is recommended. 3. Multiple right pulmonary nodules the largest of which is 7 mm. Lung RADS category 3. Follow-up CT thorax in 6 months for further assessment of the pulmonary nodules is recommended.
[2023-07-04 12:40] VITALS: BP 115/79; PULSE 94; TEMP 98.1
== END 2023-07-04 12:24 | disposition home or self-care (01) ==
LOC: EC 09:13
DX: U07.1 COVID-19 (principal); J12.82 Pneumonia due to coronavirus disease 2019; D72.829 Elevated white blood cell count, unspecified; K21.9 Gastro-esophageal reflux disease without esophagitis; J45.909 Unspecified asthma, uncomplicated; Z79.82 Long term (current) use of aspirin; Z79.899 Other long term (current) drug therapy; Z90.49 Acquired absence of other specified parts of digestive tract
CPT/HCPCS: 99284 ×2; 96365 ×2; 96361 ×3; 36415; 93005; 85379; 80053; 83605; 83690; 84484; 85025; 81003; 87040; 87636; 71046; 71275; J0696; Q9967

== ENCOUNTER → 2023-08-21 | Outpatient (CLI) | payer MEDICARE ==
--- NOTE | 2023-08-21 12:30 | CT ---
Exam: CT Chest without contrast. Date: 08/21/2023. Comparison: 07/04/2023. History: Follow-up for pulmonary nodules. Technique: CT examination of the chest was performed without contrast. Coronal and sagittal reformats were performed. CT dose lowering techniques were used, to include: automated exposure control, adjus tment for patient size, and/or use of iterative reconstruction. FINDINGS: Mediastinum and [place]: There is no axillary, mediastinal or hilar lymphadenopathy. Pleural and Pericardial spaces: There are no pleural or pericardial effusions. Upper Abdomen: The visualized upper abdomen is unremarkable. Cardiovascular: There is mild vascular calcification in the thoracic aorta without evidence of aneury smal dilation. There is mild patchy coronary artery calcifications. Lung Parenchyma and Airways: 4.1 mm nodule in the right lower lobe on series 4 image 25 is unchanged. 3.2 mm nodule in the right middle lobe on series 4 image 37 is unchanged. 4.3 mm right lower lobe no dule on series 4 image 42 is unchanged. 4.9 mm nodule in the left lower lobe on series 4 image 30 was not clearly seen on the prior examination as there was a consolidative pneumonia within the region. 5 mm nodule in the left lower lobe on series 4 image 34 is unchanged. No new or enlarging nodules are seen. There is patchy areas of tree-in-bud nodularity and groundglass attenuation within the right u pper lobe which is likely inflammatory or infectious and similar to the previous examination. The pre viously seen left lower lobe pneumonia has resolved. Bones: No fracture or aggressive osseous lesion. IMPRESSION: 1. Small pulmonary nodules are unchanged since the previous examination that were visualized. An attila tional pulmonary nodule in the left lower lobe may have been obscured by an area of pneumonia on the prior study. Follow-up in one year is recommended. Sooner if clinically indicated. 2. Findings within the right upper lobe are similar to the previous examination likely relate to an i nflammatory or atypical infectious process.
== END | disposition home or self-care (01) ==
LOC: RADCTMAIN 06:46
PROVIDERS: ATTEND Family Medicine
DX: R91.8 Other nonspecific abnormal finding of lung field (principal)
CPT/HCPCS: 71250

== ENCOUNTER → 2023-12-17 | Outpatient (CLI) | payer MEDICARE ==
--- NOTE | 2023-12-17 08:34 | CT ---
EXAMINATION TYPE: CT chest wo con CT DLP: 401.3 mGycm, Automated exposure control for dose reduction was used. DATE OF EXAM: 12/17/2023 6:43 AM COMPARISON: CT 08/21/2023 CLINICAL INDICATION:Male, 72 years old with history of R91.8 ABNORMAL FINDING OF LUNG FIELD, abnormal findings of lung field TECHNIQUE: Multiple axial images were obtained through the chest. Sagittal and coronal reformats were created for review. Contrast used: mL of (None if empty) Oral contrast used: (None if empty) FINDINGS: LUNGS/ PLEURA: Stable scattered parenchymal abnormalities including some intrafissural lymph nodes, r ight middle lobe 3 mm pulmonary nodule series 4 image 40, right lower lobe 4 mm nodule image 46 left lower lobe 5 mm nodule image 37 and 4 mm image 33. There is a new left lower lobe superior segment groundglass opacity with more solid central portion measuring 6 mm is also present. No airspace consolidation, pneumothorax or pleural effusion. AIRWAY: Patent and unremarkable. HEART: Size within normal limits. Atherosclerosis of the coronary arteries. MEDIASTINUM: No gross evidence of adenopathy. Moderate hiatal hernia. VASCULATURE: No aortic aneurysm. MUSCULOSKELETAL: Moderate disc degeneration changes are present throughout the thoracolumbar spine. SOFT TISSUES/LYMPH NODES: Unremarkable. LOWER NECK: No significant findings. UPPER ABDOMEN: Cholecystectomy clips, Hepatic steatosis. IMPRESSION: The majority of the pulmonary nodule seen on prior are stable. There is one new left lower lobe super ior segment mixed groundglass and solid pulmonary nodule. Attention on short-term follow-up in 3-6 mo nths to ensure stability/resolution. Findings could be inflammatory/infectious.
== END | disposition home or self-care (01) ==
LOC: RADCTMAIN 06:01
PROVIDERS: ATTEND Family Medicine
DX: R91.8 Other nonspecific abnormal finding of lung field (principal); R91.1 Solitary pulmonary nodule
CPT/HCPCS: 71250

== ENCOUNTER → 2024-04-15 | Outpatient (CLI) | payer MEDICARE ==
--- NOTE | 2024-04-15 13:42 | CT ---
EXAMINATION TYPE: CT chest wo con CT DLP: 426.30 mGycm, Automated exposure control for dose reduction was used. DATE OF EXAM: 04/15/2024 1:19 PM COMPARISON: Multiple CT chest with most recent 12/17/2023 CLINICAL INDICATION:Male, 73 years old with history of R91.8 PULMONARY NODULE; PHH, pulmonary nodule TECHNIQUE: Multiple axial images were obtained through the chest without IV contrast. Lack of IV or o ral contrast limits evaluation of solid and hollow organ viscera. . Coronal and sagittal reformats re viewed. FINDINGS: LUNGS/ PLEURA: Stable scattered parenchymal abnormalities redemonstrated most prominent within the ri ght upper lobe. Some new reticular and patchy groundglass opacities within the posterior right apex a nd lingula. Scattered pulmonary nodules with exams including a left lower lobe 4.7 mm pulmonary nodul e (series 4, image 32), right middle lobe 4.8 mm pulmonary nodule (series 4, image 40), right middle lobe peripheral 4.3 mm pulmonary nodule (series 4, image 37). Resolution of previously demonstrated g roundglass opacity within the superior segment of the left lower lobe. No effusion or pneumothorax. R ight lower lobe minimal dependence of segmental atelectasis redemonstrated. AIRWAY: Patent and unremarkable. HEART: Size within normal limits. No pericardial effusion.Atherosclerosis of the coronary arteries. MEDIASTINUM: No gross evidence of adenopathy. VASCULATURE: No aortic aneurysm. MUSCULOSKELETAL: No acute osseous abnormalities. DISH of the thoracic spine. SOFT TISSUES/LYMPH NODES: Unremarkable. LOWER NECK: No significant findings. UPPER ABDOMEN: Cholecystectomy clips, Hepatic steatosis. Small hiatal hernia. Fatty infiltration with in the pancreas. Right renal 3.0 cm probable cyst is redemonstrated. IMPRESSION: Stable pulmonary nodules measuring less than 5 mm. Resolution of previously demonstrated left lower l obe superior segment groundglass opacity. Development of some reticular and patchy groundglass opacit ies within the right upper lobe and lingula which may represent atelectasis versus a developing infec tious/inflammatory process. Consider follow-up CT chest in 6 months. [facility], , 04/15/2024 1:39 PM
== END | disposition home or self-care (01) ==
LOC: RADCTMAIN 12:51
PROVIDERS: ATTEND Family Medicine
DX: R91.8 Other nonspecific abnormal finding of lung field (principal)
CPT/HCPCS: 71250

== ENCOUNTER → 2024-08-27 | Outpatient (CLI) | payer MEDICARE ==
[2024-08-27 09:31] LABS: African American GFR (CKD) >90 (>60 ml/min/1.73 sqM); Blood Urea Nitrogen 16 mg/dL (9-20); Non-African American GFR(CKD) 83 (>60 ml/min/1.73 sqM)
--- NOTE | 2024-08-27 10:47 | CT ---
EXAMINATION TYPE: CT chest w con DATE OF EXAM: 08/27/2024 COMPARISON: 04/15/2024 CLINICAL INDICATION: Male, 73 years old with history of R91.8 OTHER NONSPECIFIC ABNORMAL FINDING OF L TRA F; PHH, abnormal findings of the lungs. prior on pacs TECHNIQUE: CT scan of the chest is performed with IV Contrast, patient injected with 100ml mL of Isovue 300. ME P Images are created on CT scanner and reviewed. 3D reconstructed images are created on an [employer] workstation and reviewed. CT DLP: 423.[address] CTDI: mGy Automated exposure control for dose reduction was used. FINDINGS: LUNGS: Scattered sub-5 mm pulmonary nodules remain unchanged. Mild scattered subpleural fibrosis. No evidence for airspace consolidation. No pleural effusion. MEDIASTINUM: There are no greater than 1 cm hilar or mediastinal lymph nodes. No pericardial effusi on is seen. OTHER: Hepatic steatosis. Gallbladder surgically absent. Small hiatal hernia. IMPRESSION: Scattered sub-5 mm pulmonary nodules remain unchanged. Mild scattered subpleural fibrosi s. No evidence for airspace consolidation. No pleural effusion. Six-month follow-up recommended. Follow-up recommendations for incidental pulmonary nodules are per [employer] or [employer]. [facility], , 08/27/2024 10:44 AM
== END | disposition home or self-care (01) ==
LOC: RADCTMAIN 08:49
PROVIDERS: ATTEND Internal Medicine Critical Care Medicine
DX: R91.8 Other nonspecific abnormal finding of lung field (principal); J94.1 Fibrothorax
CPT/HCPCS: 82565; 84520; 71260; 36415; Q9967